=== PATIENT | male | born 1975 | race Caucasian/White ===

== ENCOUNTER 2016-12-30 16:37 | Emergency (ER) | payer OTHER ==
[~2016-12-30] VITALS: Ht 170.2 cm; Wt 84.1 kg
[~2016-12-30 16:37] MED LIST: SULF1TAB7 PO
[2016-12-30] MEDS ORDERED: HYDROmorphone 1 mg/mL Inj ONE (16:43)
[2016-12-30] MEDS ORDERED: 0.9% Sodium Chloride 1,000 ML IV ONE (16:47)
--- NOTE | 2016-12-30 16:47 | ED.REPORT ---
HPI-Trauma Multiple Date of Service December 30, 2016 ED Provider: Kyaw Eden MD The patient is a 41 year old male with no pertinent medical history who was brought to the emergency department by a friend after he fell about 10 feet off of a roof. He did not lose consciousness. He landed on his left side and at this time he complains of left-sided chest/rib pain, left shoulder pain, and left-sided neck/back pain. He denies left elbow/forearm/wrist/hand pain, abdominal pain, difficulty breathing, numbness or weakness. He has not recently been sick. He is not on a blood thinner. Nursing Notes Stated Complaint: LT SIDE SHOULDER, RIBS AND LOW BACK/ FALL OFF ROOF Chief Complaint: Multiple Trauma/Fall Nursing Notes Reviewed: Yes Allergies: Coded Allergies: No Known Allergies (Verified Allergy, Unknown, 08/26/14) Scheduled Sulfamethoxazole/Trimeth 800-160 mg (Bactrim DS) 1 Each Tablet 1 TAB PO BID General Time Seen by Provider: 16:45 Chief Complaint Chest pain/injury, Extremity pain/injury Hx Obtained From: Patient Arrived By: Walk-in Onset Occurred: 16 - 30 minutes ago Symptom Duration: Since onset Progression Since Onset: Constant Caused by: Fall from height (10 feet) Location: : Back: Chest: Neck: Shoulder right Quality: Painful Severity: Current: Severe Severity: Maximum: Severe Recent Healthcare: No recent hospitalization Similar Sx Previous: No Risk-Trauma Multiple Shantel Coma Score > Age 5 Eye Opening: Open to verbal (3) Verbal Response: Oriented (5) Motor Response: Obeys commands (6) Shantel Coma Score: 14 Past Medical History Past Medical History Opioid dependence, IV heroin abuse. Past Surgical History Denies Family History Reviewed, not relevant Social History Drug Use: IV drugs, Meth Other Social History: Local resident Ambulatory Status Independent Review of Systems Constitutional: Denies: Chills, Fever Respiratory: Denies: Shortness of breath Cardiovascular: Reports: Chest pain GI: Denies: Abdominal pain Musculoskeletal: Reports: Back pain, Joint pain, Neck pain Neurologic: Denies: Change LOC, Focal weakness, Numbness, Syncope Complete sys rev & neg: except as marked. Physical Exam Initial Vital Signs See paper chart Initial VS: Reviewed ENT: Mucous membranes moist, Conjunctiva normal, No scleral icterus Extremities: Vascular intact, Neuro intact Skin: Warm, Dry, No cyanosis Psychiatric: Mood/affect normal, Behavior normal, Normal thought content General/Constitutional: Awake, Alert Head / Eyes: Atraumatic, Normocephalic, PERRL, EOMI Neck: No swelling C-spine tenderness but no deformity Respiratory / Chest: Breath sounds NL, Breath sounds = bilat, No respiratory distress Left chest wall tenderness. Cardiovascular: Heart rate NL, Regular rhythm, Heart sounds NL, No gallop, No murmurs, No rubs, Cap refill not delayed, Peripheral circulation NL Abdomen: Atraumatic, Soft, No guarding, No rebound, BS normoactive, No distention, No hernia, No palpable mass, No pulsatile mass Tenderness/Guarding/Rebound: Positive: Tender LUQ... Back: No midline vertebral tend Neurologic: Oriented X3, Speech NL, No motor deficits, No sensory deficits GCS: 14, for eye opening. Upper Extremity / MS: Neurologic intact, Vascular intact Deformity of his left shoulder over the clavicle. Left elbow and wrist are normal. Normal pulses in left wrist. Normal sensation and function of left hand. RUE is normal. Lower Extremity / Pelvis / MS: Inspection NL, No swelling, Non-tender, No deformity, Neurologic intact, Vascular intact Interpretation & Diagnostics Lab Results Interpretation Result Diagram: 12/30/16 1730 12/30/16 1650 Test 12/30/16 16:50 12/30/16 17:30 White Blood Count 7.8th/mm3 (3.8-10.1) Red Blood Count 5.55mil/mm3 (4.40-5.80) Mean Corpuscular Volume 85.4fL (81-100) Mean Corpuscular Hemoglobin 28.8pg (27.0-35.0) Mean Corpuscular Hemoglobin Concent 33.8% (32.0-37.0) Red Cell Distribution Width 13.1% (12.3-15.4) Platelet Count 207bil/L (150-400) Neutrophils (%) (Auto) 61.0% (40-74) Lymphocytes (%) (Auto) 28.6% (14-46) Monocytes (%) (Auto) 6.4% (4-12) Eosinophils (%) (Auto) 3.3% (0-5) Basophils (%) (Auto) 0.6% (0-3) Prothrombin Time 10.6sec (8.1-12.5) Prothromb Time International Ratio 0.99ratio Sodium Level 137mEq/L (134-144) Potassium Level 3.6mEq/L (3.5-5.2) Chloride Level 96mEq/L (97-108) Carbon Dioxide Level 26mmol/L (18-29) Blood Urea Nitrogen 12mg/dL (6-24) Creatinine 0.72mg/dL (0.76-1.27) Estimat Glomerular Filtration Rate 128mL/min (>59) Glucose Level 82mg/dL (60-99) Calcium Level 10.4mg/dL (8.5-10.1) Total Bilirubin 0.5mg/dL (0.0-1.2) Aspartate Amino Transf (AST/SGOT) 104U/L (0-50) Alanine Aminotransferase (ALT/SGPT) 170U/L (0-44) Alkaline Phosphatase 87U/L (25-150) Total Protein 8.4g/dL (6.4-8.4) Albumin 4.4g/dL (3.4-5.0) Hold Da Silva Top Tube Received (Received) Alcohols < 10mg/dL (0-10) Hemoglobin 14.6g/dL (13.8-17.2) Hematocrit 42.5% (41.0-50.0) ECG Interpretation ECG Interpretation: Normal sinus rhythm with a rate of 89 Time: 17:14 Interpreted by: ED physician CT Head Interpretation IMPRESSION: Negative head CT. Dictated by: Anirudh Bridges M.D. on 12/30/2016 at 17:33 Study: Head CT no contrast Interpretation / Wet Read by: Interpret - Radiologist CT Abd / Pelvis Interpretation IMPRESSION: 1. No post traumatic injury in the chest, abdomen or pelvis. 2. Extrahepatic biliary ductal dilatation with no starting lesion identified. Please correlate with laboratory values. Otherwise MRCP could evaluate this finding on a nonemergent basis. 3. Minimal splenomegaly. Otherwise the spleen is radiographically normal. Dictated by: Anirudh Bridges M.D. on 12/30/2016 at 17:16 Study type: Abdominal CT IV contrast Interpretation / Wet Read by: Interpret - Radiologist CT C-Spine Interpretation IMPRESSION: Negative cervical spine CT. Dictated by: Anirudh Bridges M.D. on 12/30/2016 at 17:35 Study type: CT no contrast Interpretation / Wet Read by: Interpret - Radiologist Re-Eval/Medical Decision Med Decision/Clinical Course He is hemodynamically stable at time of CTs. Source of Hx: Old records Re-Evaluation/Progress : Time of Eval: 17:51 Re-Evaluation/Progress Note: Rechecked the patient. The deformity that was originally seen on exam is now gone. Discussed results, diagnosis, and plan. All questions were addressed. The patient was on Suboxone but ran out about 1 week ago. He has an appointment on January 14. I did review his p.m. P which shows recent Suboxone prescriptions. I was able to query the [facility] database and found that he was positive yesterday for methamphetamines and narcotics. There are no objective injuries identified at this time and will not, therefore precribe any opiates. Counseled Regarding: Diagnosis, Lab results, Need for follow-up, When/why to return to ED Discharge & Departure Impression: Primary Impression: Fall Encounter type: initial encounter Qualified Code: W19.XXXA - Unspecified fall, initial encounter Additional Impressions: Contusion of left shoulder Encounter type: initial encounter Qualified Code: S40.012A - Contusion of left shoulder, initial encounter Contusion of left chest wall Encounter type: initial encounter Qualified Code: S20.212A - Contusion of left front wall of thorax, initial encounter Disposition: Home Discharge Condition All VS Reviewed: Yes Condition: Stable Patient Instructions: Contusion in Adults (ED) Additional Instructions: Thank you for entrusting us with your care today. Your CT scans today are reassuring. There is no evidence of any acute fractures , internal bleeding, or an intracranial hemorrhage. You can use ibuprofen 800 mg every 8 hours as needed for your pain. In addition to that, you can take Tylenol 1000 mg every 6 hours. It is important to go to your appointment at [facility] on January 14. Return to the emergency department for any new or concerning symptoms. Referrals: [facility] (PCP) Scribe Attestation Portions of this note were transcribed by Jaylin Camara. I, Dr. Eden personally performed the history, physical exam and medical decision-making; I reviewed and confirmed the accuracy of the information in the transcribed note. Signed by: Laurent Houser, 12/30/2016 at 1830. copies to: [facility] [place],Kyaw Shoemaker MD December 30, 2016 16:47 Jax,Jaylin Cook December 30, 2016 16:55
[2016-12-30] MEDS ORDERED: Ondansetron 2 mg/mL 2 mL Inj IVPUSH PRN (16:50)
[2016-12-30] MEDS: HYDROmorphone 1 mg/mL Inj IVPUSH PRN ×2 (16:55→17:28)
[2016-12-30 17:04] LABS: BASOPHILS % (AUTO) 0.6 % (0-3); EOSINOPHILS % (AUTO) 3.3 % (0-5); MONOCYTES % (AUTO) 6.4 % (4-12); Mean Corpuscular Hemoglobin 28.8 pg (27.0-35.0); Mean Corpuscular Volume 85.4 fL (81-100); Platelet Count 207 bil/L (150-400)
[2016-12-30 17:21] LABS: INR 0.99 ratio
--- NOTE | 2016-12-30 17:31 | DRSVH ---
PROCEDURE: CT CHEST, ABDOMEN AND PELVIS WITH CONTRAST ([id number]) INDICATIONS: trauma TECHNIQUE: After the administration of intravenous contrast, 5 mm thick sections acquired from the lung apices t o the symphysis. 5 mm thick coronal and sagittal reformats were acquired. Additional 7 mm thick cor onal maximum intensity projection (MIP) reformats acquired through the lungs. Optional 10-minute del ayed imaging may be performed from the kidneys to the bladder. For radiation dose reduction, the fol lowing was used: automated exposure control, adjustment of mA and/or kV according to patient size. COMPARISON: [facility], CT, BRAIN W/O CONTRAST, 04/13/2009, 20:20. FINDINGS: Image quality: Excellent. CHEST: Lungs: No pulmonary contusions or lacerations. No acute airspace opacities. No pneumothorax or hem othorax. Central and peripheral airways appear patent and normal in caliber. Mediastinum: No mediastinal hematomas. Heart size is normal. No pericardial effusion. Thoracic ao rta and pulmonary arteries demonstrate normal size and enhancement. No mediastinal or hilar adenopat hy. Esophagus is normal in caliber. No hiatal hernia. Chest wall: No rib fractures. No subcutaneous emphysema. No axillary or supraclavicular adenopathy . ABDOMEN: Solid organs: Mild enlargement of otherwise radiographically normal spleen. Liver is normal in size and enhancement, without lacerations. Gallbladder is contracted but otherwise normal. dilatation of the extrahepatic bile ducts measuring 1.3 CM with no obstructing lesion identified. Pancreas enhance s normally, without transection. No adrenal hematomas. Both kidneys enhance normally, without hydro nephrosis or lacerations. Peritoneum and bowel: No free fluid or air. Unenhanced bowel loops demonstrate normal wall thicknes s and caliber. Nodes and vessels: No retroperitoneal or mesenteric adenopathy. Aorta and inferior vena cava are no rmal in size and enhancement. Miscellaneous: No ventral hernias. PELVIS: Genitourinary: Bladder wall thickness is normal. Miscellaneous: No inguinal hernias or adenopathy. Bones: Pelvic ring and hip joints appear intact. No vertebral compression fractures. IMPRESSION: 1. No post traumatic injury in the chest, abdomen or pelvis. 2. Extrahepatic biliary ductal dilatation with no starting lesion identified. Please correlate with laboratory values. Otherwise MRCP could evaluate this finding on a nonemergent basis. 3. Minimal splenomegaly. Otherwise the spleen is radiographically normal. Dictated by: Anirudh Bridges M.D. on 12/30/2016 at 17:16 Approved by: Anirudh Bridges M.D. on 12/30/2016 at 17:24
--- NOTE | 2016-12-30 17:42 | DRSVH ---
PROCEDURE: CT BRAIN WITHOUT CONTRAST ([id number]) INDICATIONS: trauma TECHNIQUE: Noncontrast 4.5 mm thick angled axial sections acquired from the foramen magnum to the vertex, with c oronal reformats. COMPARISON: [facility], CT, BRAIN W/O CONTRAST, 04/13/2009, 20:20. FINDINGS: Image quality: Excellent. CSF spaces: Basal cisterns are patent. No extra-axial fluid collections. Ventricles are normal in size and shape. Brain: No midline shift. No intracranial masses or hemorrhage. Carvajal-white matter interface is norm al. Skull and face: Calvarium and visualized facial bones are intact, without suspicious lesions. Sinuses: Right maxillary sinus mucosal polyp. IMPRESSION: Negative head CT. Dictated by: Anirudh Bridges M.D. on 12/30/2016 at 17:33 Approved by: Anirudh Bridges M.D. on 12/30/2016 at 17:35
--- NOTE | 2016-12-30 17:47 | DRSVH ---
PROCEDURE: CT CERVICAL SPINE WITHOUT CONTRAST ([id number]) INDICATIONS: trauma TECHNIQUE: Noncontrast 3 mm thick sections acquired from the skull base to the T4 level. Sagittal and coronal r eformats were then constructed. For radiation dose reduction, the following was used: automated exp osure control, adjustment of mA and/or kV according to patient size. COMPARISON: [facility], CT, BRAIN W/O CONTRAST, 04/13/2009, 20:20. FINDINGS: Image quality: Excellent. Bones: No fractures or dislocations. Visualized superior ribs are intact. Soft tissues: Prevertebral soft tissues are normal in thickness. No paravertebral hematomas. No ap ical pneumothoraces. IMPRESSION: Negative cervical spine CT. Dictated by: Anirudh Bridges M.D. on 12/30/2016 at 17:35 Approved by: Anirudh Bridges M.D. on 12/30/2016 at 17:39
[2016-12-30 18:28] VITALS: BP 150/99; PULSE 86; RESP 10; O2SAT 96
== END 2016-12-30 18:30 | disposition home or self-care (01) ==
LOC: SED 16:37
DX: S40.012A Contusion of left shoulder, initial encounter (principal); S20.212A Contusion of left front wall of thorax, initial encounter; W13.2XXA Fall from, out of or through roof, initial encounter; Y93.9 Activity, unspecified; Y92.9 Unspecified place or not applicable; Y99.9 Unspecified external cause status
CPT/HCPCS: 36415; 70450; 71260; 72125; 74177; 80053; 85014; 85018; 85025; 85610; 86850; 93005; 96374; 96375; 99285; G0480; J1170; J1885; J2405; J7030; Q9967